=== PATIENT | female | born 1980 | race Caucasian/White ===

== ENCOUNTER 2016-11-27 17:40 | Emergency (ER) | payer MEDICAID ==
--- NOTE | 2016-11-27 17:49 | ER Document Report ---
ED Medical Screen (RME) - General Stated Complaint: THUMB INJURY Time seen by provider: 17:49 Mode of Arrival: Ambulatory Information source: Patient TRAVEL OUTSIDE OF THE [place] IN LAST 30 DAYS: No - HPI Patient complains to provider of: INJURED RIGHT THUMB/WRIST Onset: Other - SATURDAY Onset/Duration: Sudden Context: PLAYING WITH CHILDREN ON SATURDAY AND HYPEREXTENDED RIGHT THUMB. Quality of pain: Throbbing Severity: Moderate Pain Level: 4 Associated Symptoms: None Exacerbated by: Movement Relieved by: Denies Similar symptoms previously: No Recently seen / treated by doctor: No - Related Data Smoking: Cigarettes Frequency of alcohol use: None Drug Abuse: None Pertinent History: ANGINA Allergies/Adverse Reactions: No Known Allergies Allergy (Verified 11/27/16 17:52) Past Medical History Past Surgical History: Reports: Hx Breast Surgery - breast implants, Hx Section - x2, Hx Tubal Ligation - Immunizations Hx Diphtheria, Pertussis, Tetanus Vaccination: Yes Physical Exam - Vital signs Vitals: Temp Pulse Resp BP Pulse Ox 98.0 F 95 16 125/85 97 11/27/16 17:43 11/27/16 17:43 11/27/16 17:43 11/27/16 17:43 11/27/16 17:43 Course - Vital Signs Vital signs: Temp Pulse Resp BP Pulse Ox 98.0 F 95 16 125/85 97 11/27/16 17:43 11/27/16 17:43 11/27/16 17:43 11/27/16 17:43 11/27/16 17:43
[2016-11-27] MEDS ORDERED: OXYCODONE-ACETAMINOPHEN 5-325 MG TABLET PO ONE (17:56)
--- NOTE | 2016-11-27 19:24 | ER Document Report ---
HPI - HPI Patient complains to provider of: right thumb injury Pain Level: 4 Context: Patient is a 36-year-old female that comes emergency department for chief complaint of right thumb/wrist injury, she states that she was playing football 2 days ago when she had a hyperextension injury of the right thumb followed by swelling, she states she has been icing and resting the area, taking ibuprofen, but she still has limited use in a lot of pain. Patient denies any other injuries, she is not on a blood thinner. - REPRODUCTIVE LMP: 11/04/16 Reproductive: DENIES: : - DERM Skin Color: Ecchymosis Past Medical History - General Information source: Patient - Social History Smoking Status: Current Every Day Smoker Chew tobacco use (# tins/day): Yes Frequency of alcohol use: None Drug Abuse: None Lives with: Family Family History: None Patient has suicidal ideation: No Patient has homicidal ideation: No - Medical History Medical History: Negative Renal/ Medical History: Denies: Hx Peritoneal Dialysis Past Surgical History: Reports: Hx Breast Surgery - breast implants, Hx Section - x2, Hx Tubal Ligation - Immunizations Hx Diphtheria, Pertussis, Tetanus Vaccination: Yes Vertical Provider Document - CONSTITUTIONAL General Appearance: WD/WN, No Apparent Distress - INFECTION CONTROL TRAVEL OUTSIDE OF THE [place] IN LAST 30 DAYS: No - HEENT HEENT: Atraumatic, Normocephalic - NECK Neck: Normal Inspection - RESPIRATORY Respiratory: Breath Sounds Normal, No Respiratory Distress O2 Sat by Pulse Oximetry: 97 - CARDIOVASCULAR Cardiovascular: Regular Rate, Regular Rhythm - GI/ABDOMEN Gastrointestinal: Abdomen Soft, Abdomen Non-Tender - BACK Back: Normal Inspection - MUSCULOSKELETAL/EXTREMETIES Musculoskeletal/Extremeties: Tender - There is significant tenderness even with slight distraction of the right thumb away from the second digit, there is some soft tissue swelling over the thenar area, no overt snuffbox tenderness, normal capillary refill and sensation, normal hand/wrist/arm exam otherwise. - NEURO Level of Consciousness: Awake, Alert, Appropriate Motor/Sensory: No Motor Deficit, No Sensory Deficit - DERM Integumentary: Warm, Dry, No Rash Course - Re-evaluation Re-evalutation: Physical exam is consistent with ulnar collateral ligament sprain/injury, negative snuffbox tenderness, x-rays negative for any fracture. Patient placed in thumb spica, discussed gamekeeper's thumb, referred to orthopedics. Patient states understanding and agreement. - Vital Signs Vital signs: Temp Pulse Resp BP Pulse Ox 98.0 F 95 16 125/85 97 11/27/16 17:43 11/27/16 17:43 11/27/16 17:43 11/27/16 17:43 11/27/16 17:43 Procedures - Immobilization right wrist Pre-Proc Neuro Vasc Exam: Normal Immobilizer type: Thumb spica Performed by: PCT Post-Proc Neuro Vasc Exam: Normal Alignment checked and good: Yes Discharge - Discharge Clinical Impression: Swelling of right thumb Injury of right thumb Qualifiers: Encounter type: initial encounter Qualified Code(s): S69.91XA - Unspecified injury of right wrist, hand and finger(s), initial encounter Condition: Stable Disposition: HOME, SELF-CARE Additional Instructions: Your injury and examination are consistent with a gamekeeper's thumb, injury of the ulnar collateral ligament. Wear the splint, follow-up with orthopedics referral for management. Return to the emergency department for any concerning symptoms. Prescriptions: Oxycodone HCl/Acetaminophen [Percocet 5-325 mg Tablet] 1 tab PO Q4H PRN #10 tablet PRN Reason: Forms: Return to Work Referrals: ELPIDIO SMYTH DO [ACTIVE STAFF] - Follow up in 1 week
[2016-11-27 20:54] VITALS: BP 120/82
== END 2016-11-27 20:56 | disposition home or self-care (01) ==
LOC: ER 17:40
PROC: 2W3CX1Z Immobilization of Right Lower Arm using Splint (ICD-10-PCS; principal; 2016-11-27)
DX: S69.91XA Unspecified injury of right wrist, hand and finger(s), initial encounter (principal); M79.89 Other specified soft tissue disorders; X50.0XXA Overexertion from strenuous movement or load, initial encounter; Y93.61 Activity, american tackle football; F17.200 Nicotine dependence, unspecified, uncomplicated
CPT/HCPCS: 99283

== ENCOUNTER 2017-03-13 00:56 | Emergency (ER) | payer MEDICAID | END 2017-03-13 03:00 | disposition left against medical advice (07) | LOC: ER 00:56 | DX: Z53.21 Procedure and treatment not carried out due to patient leaving prior to being seen by health care provider (principal) ==

== ENCOUNTER 2017-03-14 17:50 | Emergency (ER) | payer SELFPAY ==
[2017-03-14] MEDS ORDERED: OXYCODONE-ACETAMINOPHEN 5-325 MG TABLET PO ONE (18:42)
[2017-03-14] MEDS ORDERED: SILVER SULFADIAZINE 1% CREAM 25 GM TP ONE (18:42)
--- NOTE | 2017-03-14 18:57 | ER Document Report ---
HPI - HPI Patient complains to provider of: Hand burn Onset: Yesterday Onset/Duration: Sudden Quality of pain: Burning Pain Level: 3 Context: Patient states that she was frying chicken and dropped the chicken in a dominguez of grease causing the grease to splash up on her left hand. Patient is right-hand dominant. Patient complains of burn to dorsal aspect of left hand and left forearm area. Patient states her tetanus is currently up-to-date. Pt is right hand dominant Associated Symptoms: Other - left hand/wrist burn Exacerbated by: Movement Relieved by: Denies Similar symptoms previously: No Recently seen / treated by doctor: No - ROS ROS below otherwise negative: Yes Systems Reviewed and Negative: Yes All other systems reviewed and negative - CONSTITUTIONAL Constitutional: DENIES: Fever, Chills - NEURO Neurology: DENIES: Weakness - GASTROINTESTINAL Gastrointestinal: DENIES: Nausea, Patient vomiting - REPRODUCTIVE Reproductive: DENIES: : - MUSCULOSKELETAL Musculoskeletal: REPORTS: Extremity pain. DENIES: Swelling - DERM Skin Problems: Burn Past Medical History - General Information source: Patient - Social History Smoking Status: Current Every Day Smoker Frequency of alcohol use: None Drug Abuse: None Occupation: cleaning Lives with: Family Family History: None Patient has suicidal ideation: No Patient has homicidal ideation: No - Past Medical History Cardiac Medical History: Reports: Other - angina Renal/ Medical History: Denies: Hx Peritoneal Dialysis Past Surgical History: Reports: Hx Breast Surgery - breast implants, Hx Section - x2, Hx Tubal Ligation - Immunizations Hx Diphtheria, Pertussis, Tetanus Vaccination: Yes Vertical Provider Document - CONSTITUTIONAL Agree With Documented VS: Yes Exam Limitations: No Limitations General Appearance: WD/WN, No Apparent Distress - INFECTION CONTROL TRAVEL OUTSIDE OF THE [place] IN LAST 30 DAYS: No - HEENT HEENT: Atraumatic, Normocephalic - NECK Neck: Normal Inspection, Supple - RESPIRATORY Respiratory: Breath Sounds Normal, No Respiratory Distress O2 Sat by Pulse Oximetry: 98 - CARDIOVASCULAR Cardiovascular: Regular Rate, Regular Rhythm, No Murmur Pulses: Normal: Radial - BACK Back: Normal Inspection - MUSCULOSKELETAL/EXTREMETIES Musculoskeletal/Extremeties: FELIX FLOWERS - NEURO Level of Consciousness: Awake, Alert, Appropriate Motor/Sensory: No Motor Deficit - DERM Integumentary: Warm, Dry Notes: Patient with partial thickness burn to the dorsal aspect of left third fourth and fifth fingers. No circumferential burning. Pt With small intact blister over left fourth finger PIP joint. Patient with few scattered partial- thickness acosta to left forearm. No Edema, no concern for cellulitis Course - Re-evaluation Re-evalutation: 03/14/17 18:[address] Wilson regarding patient management, agrees with discharge plan of care - Vital Signs Vital signs: Temp Pulse Resp BP Pulse Ox 98.2 F 79 16 120/73 98 03/14/17 18:05 03/14/17 18:05 03/14/17 18:05 03/14/17 18:05 03/14/17 18:05 Discharge - Discharge Clinical Impression: Burn of hand, left Qualifiers: Encounter type: initial encounter Burn degree: second degree Qualified Code(s) : T23.202A - Burn of second degree of left hand, unspecified site, initial encounter Condition: Stable Disposition: HOME, SELF-CARE Instructions: Silvadene Cream ([facility]), Soap Cleansing ([facility]), Acosta ([facility]), Oral Narcotic Medication ([facility]) Additional Instructions: Return immediately for any new or worsening symptoms Followup with your primary care provider, call tomorrow to make a followup appointment Perform full range of motion exercises to left hand and fingers. Keep wound covered as it continues to heal. Change dressing daily. Follow-up with the wound clinic for any continued problems Prescriptions: Oxycodone HCl/Acetaminophen [Percocet 5-325 mg Tablet] 1 tab PO ASDIR PRN #15 tablet PRN Reason: Silver Sulfadiazine [Silvadene 1% Cream 25 gm] 1 applic TP DAILY #1 tube Forms: Return to Work Referrals: Wound Care [Provider Group] - Follow up as needed
[2017-03-14 19:24] VITALS: BP 100/58
== END 2017-03-14 19:23 | disposition home or self-care (01) ==
LOC: ER 17:50
DX: T23.222A Burn of second degree of single left finger (nail) except thumb, initial encounter (principal); T23.002A Burn of unspecified degree of left hand, unspecified site, initial encounter; T22.012A Burn of unspecified degree of left forearm, initial encounter; X10.2XXA Contact with fats and cooking oils, initial encounter; Y93.G3 Activity, cooking and baking; F17.200 Nicotine dependence, unspecified, uncomplicated
CPT/HCPCS: 99283

== ENCOUNTER 2017-03-29 20:21 | Emergency (ER) | payer SELFPAY ==
[2017-03-29] MEDS ORDERED: BUPIVACAINE HCL 0.5 % INJ/PF 30 ML SDV INJ ONE (21:28)
[2017-03-29] MEDS ORDERED: HYDROCODONE/ACETAMINOPHEN 5-325 MG TABLET PO ONE (22:01)
--- NOTE | 2017-03-29 22:01 | ER Document Report ---
ED General - General Chief Complaint: Toothache Stated Complaint: MOUTH PAIN Time Seen by Provider: 03/29/17 21:24 Mode of Arrival: Ambulatory Information source: Patient Notes: 36-year-old female history of extensive dental work stating she had over $3000 with the work performed on her front teeth presents with complaints of dental pain. Patient notes pain is on the right lower and she states it is on the right upper and then she states that on the face. Patient denies any fevers admits that food may have worsened it and may have gotten stuck in her dental fracture TRAVEL OUTSIDE OF THE [place] IN LAST 30 DAYS: No - HPI Onset: This morning Onset/Duration: Sudden Quality of pain: Achy Severity: Mild Pain Level: 1 Associated symptoms: None Exacerbated by: Food Relieved by: Denies Similar symptoms previously: No Recently seen / treated by doctor: No - Related Data Allergies/Adverse Reactions: No Known Allergies Allergy (Verified 03/14/17 18:04) Past Medical History - Social History Smoking Status: Current Every Day Smoker Cigarette use (# per day): Yes Chew tobacco use (# tins/day): No Smoking Education Provided: No Family History: None Renal/ Medical History: Denies: Hx Peritoneal Dialysis Past Surgical History: Reports: Hx Breast Surgery - breast implants, Hx Section - x2, Hx Tubal Ligation - Immunizations Hx Diphtheria, Pertussis, Tetanus Vaccination: Yes Review of Systems - Review of Systems Notes: REVIEW OF SYSTEMS: CONSTITUTIONAL : Denies fever, chills, or sweats. Denies recent illness. EENT: Admits to dental pain CARDIOVASCULAR: Denies chest pain. Denies palpitations or racing or irregular heart beat. Denies ankle edema. RESPIRATORY: Denies cough, cold, or chest congestion. Denies shortness of breath, difficulty breathing, or wheezing. GASTROINTESTINAL: Denies abdominal pain or distention. Denies nausea, vomiting , or diarrhea. Denies blood in vomitus, stools, or per rectum. Denies black, tarry stools. Denies constipation. GENITOURINARY: Denies difficulty urinating, painful urination, burning, frequency, blood in urine, or discharge. FEMALE GENITOURINARY: Denies vaginal bleeding, heavy or abnormal periods, irregular periods. Denies vaginal discharge or odor. MUSCULOSKELETAL: Denies back or neck pain or stiffness. Denies joint pain or swelling. SKIN: Denies rash, lesions or sores. HEMATOLOGIC : Denies easy bruising or bleeding. LYMPHATIC: Denies swollen, enlarged glands. NEUROLOGICAL: Denies confusion or altered mental status. Denies passing out or loss of consciousness. Denies dizziness or lightheadedness. Denies headache. Denies weakness or paralysis or loss of use of either side. Denies problems with gait or speech. Denies sensory loss, numbness, or tingling. Denies seizures. PSYCHIATRIC: Denies anxiety or stress. Denies depression, suicidal ideation, or homicidal ideation. ALL OTHER SYSTEMS REVIEWED AND NEGATIVE. Dictation was performed using [email or web address] voice recognition software PHYSICAL EXAMINATION: GENERAL: Well-appearing, well-nourished and in no acute distress. HEAD: Atraumatic, normocephalic. EYES: Pupils equal round and reactive to light, extraocular movements intact, conjunctiva are normal. ENT: Fractured tooth #32 and 31 tooth #1 and 2 are decayed tooth #1516 decayed extensive dental caries all throughout NECK: Normal range of motion, supple without lymphadenopathy LUNGS: Breath sounds clear to auscultation bilaterally and equal. No wheezes rales or rhonchi. HEART: Regular rate and rhythm without murmurs ABDOMEN: Soft, nontender, nondistended abdomen. No guarding, no rebound. No masses appreciated. Female : deferred Musculoskeletal: Normal range of motion, no pitting or edema. No cyanosis. NEUROLOGICAL: Cranial nerves grossly intact. Normal speech, normal gait. Normal sensory, motor exams PSYCH: Normal mood, normal affect. SKIN: Warm, Dry, normal turgor, no rashes or lesions noted. Physical Exam - Vital signs Vitals: Temp Pulse Resp BP Pulse Ox 98.0 F 90 18 129/84 H 97 03/29/17 20:32 03/29/17 20:32 03/29/17 20:32 03/29/17 20:32 03/29/17 20:32 Course - Re-evaluation Re-evalutation: 03/29/17 23:36 Dental block was performed which interestingly enough only made her tongue was numb but did not give any pain relief. Patient will be started on antibiotics given pain control is otherwise well-appearing in no distress, physical examination otherwise noted a cheerful patient's whose pain was not seem to be controlled with a well performed dental block After performing a Medical Screening Examination, I estimate there is LOW risk for a DEEP SPACE INFECTION (e.g., UDAY'S ANGINA OR RETROPHARYNGEAL ABSCESS), MENINGITIS, INTRACRANIAL HEMORRHAGE, or AIRWAY COMPROMISE, thus I consider the discharge disposition reasonable. Also, there is no evidence or peritonitis, sepsis, or toxicity. I have reevaluated this patient multiple times and no significant life threatening changes are noted. The patient and I have discussed the diagnosis and risks, and we agree with discharging home with close follow-up with the understanding that symptoms and presentations can change. We also discussed returning to the Emergency Department immediately if new or worsening symptoms occur. We have discussed the symptoms which are most concerning (e.g., changing or worsening pain, trouble swallowing or breathing, neck stiffness or fever) that necessitate immediate return. - Vital Signs Vital signs: Temp Pulse Resp BP Pulse Ox 98.0 F 98 20 127/80 H 97 03/29/17 20:32 03/29/17 22:08 03/29/17 22:08 03/29/17 22:08 03/29/17 20:32 Procedures - Additional Procedures right inferior alveolar nerve block Time performed: 21:50 - using 10 cc of 0.55 sensorcaine with miniam relief, no complciation Discharge - Discharge Clinical Impression: Pain, dental Condition: Stable Disposition: HOME, SELF-CARE Instructions: Toothache ([facility]) Additional Instructions: Follow up with your physician tomorrow for further care or return to the ED IMMEDIATELY if symptoms worsen or new concerns occur. If you cannot afford to follow up with your primary care physician a list of low cost clinics have been provided at the end of your discharge papers as well. Prescriptions: Hydrocodone/Acetaminophen [[place] 5-325 mg Tablet] 1 tab PO Q6 #10 tablet Penicillin V Potassium [Penicillin Vk 500 mg Tablet] 500 mg PO Q6 #40 tablet
[2017-03-29 22:10] VITALS: BP 127/80
== END 2017-03-29 22:10 | disposition home or self-care (01) ==
LOC: ER 20:21
PROC: 3E0T3BZ Introduction of Anesthetic Agent into Peripheral Nerves and Plexi, Percutaneous Approach (ICD-10-PCS; principal; 2017-03-29)
DX: K08.89 Other specified disorders of teeth and supporting structures (principal); F17.210 Nicotine dependence, cigarettes, uncomplicated
CPT/HCPCS: 99282